=== PATIENT | female | born 1985 | race Caucasian/White ===

== ENCOUNTER 2018-03-04 18:49 | Inpatient (IN) | payer MEDICAID, OTHER ==
[2018-03-03 14:30] VITALS: BP 128/92
[~2018-03-04] VITALS: Ht 167.6 cm; Wt 139.0 kg
[2018-03-04 19:20] LABS: CLARITY,URINE CLOUDY (Clear); COLOR,URINE YELLOW (Yellow); GLUCOSE, URINE NEGATIVE (Neg); KETONES,URINE TRACE mg/dl (Neg); LEUKOCYTE ESTERASE ,URINE MODERATE (Neg); NITRITES, URINE NEGATIVE (Neg); OCCULT BLOOD,URINE MODERATE (Neg); PROTEIN,URINE 30 mg/dl (Neg); UROBILINOGEN,URINE 0.2 E.U/dL (0.2-1.0)
[2018-03-04 19:21] LABS: URINE HCG NEGATIVE (NEG)
[2018-03-04 19:27] LABS: UA COLLECTION TYPE CLN CATCH MIDSTREAM
[2018-03-04 19:32] LABS: BACTERIA,URINE 2+ /HPF (Neg); MUCUS STRANDS MODERATE /LPF (Neg); SQUAMOUS EPITHELIAL CELL,UR MANY /LPF (FEW); TRICHOMONAS,URINE MANY /HPF (NEGATIVE); WBC,URINE 20-30 /HPF (0-4)
[2018-03-04] MEDS ORDERED: CefTRIAXone/D5W-Rocephin 1gm 50 ML IV ONE (19:45)
[2018-03-04] MEDS ORDERED: normal saline 1000ml 1,000 ML IV ONE (19:45)
[2018-03-04] MEDS ORDERED: HYDROmorphone 1 mg/ml syringe IV ONE (19:45)
[2018-03-04] MEDS ORDERED: ondansetron/PF 4mg/2ml inj IV ONE ×2 (19:45→21:40)
[2018-03-04] MEDS ORDERED: HYDROmorphone inj. 0.5 MG/0.5 ML DISP.SYRIN ONE (19:51)
[2018-03-04 20:18] LABS: BASOPHILS # (AUTO) 0.1 X10'3 (0-0.2); BASOPHILS % (AUTO) 1.2 % (0-1); EOSINOPHILS # (AUTO) 0.5 X10'3 (0-0.9); EOSINOPHILS % (AUTO) 4.7 % (0-6); HEMATOCRIT 32.9 % (35.0-45.0); LYMPHOCYTES # (AUTO) 2.6 X10'3 (1.1-4.8); LYMPHOCYTES % (AUTO) 26.3 % (21-51); MEAN CORPUSCULAR HEMOGLOBIN 30.4 PG (27.0-31.0); MEAN CORPUSCULAR HGB CONC 33.4 % (33.0-36.5); MEAN CORPUSCULAR VOLUME 90.9 FL (78-98); MONOCYTES # (AUTO) 0.6 X10'3 (0-0.9); NEUTROPHILS # (AUTO) 6.1 X10'3 (1.8-7.7); NEUTROPHILS % (AUTO) 61.8 % (42-75); PLATELET COUNT 303 X10'3 (140-440); RED BLOOD COUNT 3.62 X10'6 (4.20-5.60); WHITE BLOOD COUNT 9.9 X10'3 (4.5-11.0)
[2018-03-04 20:42] LABS: URINE AMPHETAMINE SCREEN NEGATIVE (Neg); URINE BARBITUATE SCREEN NEGATIVE (Neg); URINE BENZODIAZEPINES SCREEN NEGATIVE (Neg); URINE CANNABINOID SCREEN NEGATIVE (Neg); URINE COCAINE SCREEN NEGATIVE (Neg); URINE METHADONE SCREEN NEGATIVE (Neg); URINE OPIATE SCREEN POSITIVE (Neg); URINE PHENCYCLIDINE SCREEN NEGATIVE (Neg)
[2018-03-04 21:35] LABS: ALANINE AMINOTRANSFERASE 17 U/L (12-78); ALBUMIN 2.5 G/DL (3.4-5.0); ALBUMIN/GLOBULIN RATIO 0.7 (1.1-1.5); ALKALINE PHOSPHATASE 82 IU/L (46-116); ANION GAP 8 (8-16); ASPARTATE AMINO TRANSFERASE 11 U/L (10-37); BILIRUBIN,TOTAL 0.1 MG/DL (0.1-1.0); BLOOD UREA NITROGEN 20 MG/DL (7-18); CALCIUM 7.8 MG/DL (8.5-10.1); CHLORIDE 109 MMOL/L (99-107); CREATININE 0.54 MG/DL (0.40-0.90); GLUCOSE 119 MG/DL (70-104); SODIUM 144 MMOL/L (135-145); TOTAL CARBON DIOXIDE 27.1 MMOL/L (24-32); eGFR > 90 ML/MIN
[2018-03-04] MEDS ORDERED: HYDROmorphone 2mg/ml vial IV STA (21:40)
[2018-03-04] MEDS ORDERED: CIPR-230 PO (21:40)
[2018-03-04] MEDS ORDERED: ONDA4TAB9 PO (21:41)
[2018-03-04] MEDS ORDERED: HYDR-569 PO (21:41)
[2018-03-04] MEDS ORDERED: HYDROmorphone inj. 0.5 MG/0.5 ML DISP.SYRIN IV STA (21:47)
[2018-03-04] MEDS ORDERED: metoclopramide 5 mg/ml inj IV ONE (21:55)
[2018-03-04] MEDS: potassium 10mEq/100ml NS w/LIDOcaine (10mg/bag) IV SCH ×2 (22:15→23:34)
[2018-03-05] VITALS (17 sets, daily range): BP systolic 122–152; BP diastolic 62–92
[2018-03-05 00:18] LABS: MAGNESIUM 1.7 MG/DL (1.5-2.4); PHOSPHORUS 2.7 MG/DL (2.3-4.5)
[2018-03-05] MEDS ORDERED: mag hydrox/Alum hydrox/simeth 30ml oral suspension PO PRN (01:30)
[2018-03-05] MEDS ORDERED: HYDROmorphone inj. 0.5 MG/0.5 ML DISP.SYRIN IV PRN ×4 (01:30→15:18)
[2018-03-05] MEDS ORDERED: potassium Cl 40MEQ/NS 500ml 500 ML IV PRN ×2 (01:30)
[2018-03-05] MEDS ORDERED: magnesium 2GM in 50ml NS 50 ML IV PRN (01:30)
[2018-03-05] MEDS ORDERED: magnesium Cl slow-release 64mg tablet PO PRN (01:30)
[2018-03-05] MEDS ORDERED: magnesium hydroxide 30ml (MOM) UD suspension PO PRN (01:30)
[2018-03-05] MEDS ORDERED: acetaminophen 325mg tablet PO PRN (01:30)
[2018-03-05] MEDS ORDERED: potassium Cl 20 mEq SR tablet PO PRN ×2 (01:30)
[2018-03-05] MEDS ORDERED: magnesium 4gm in 100ml NS 100 ML IV PRN (01:30)
[2018-03-05] MEDS ORDERED: HYDROmorphone 1 mg/ml syringe IV ONE (01:35)
[2018-03-05] MEDS ORDERED: HYDROmorphone inj. 0.5 MG/0.5 ML DISP.SYRIN ONE (02:22)
[2018-03-05] MEDS: levoFLOXACIN-Levaquin 500mg/D5 100 ML IV SCH ×2 (02:34→21:53)
[2018-03-05] MEDS: potassium cl 20mEq in 1/2 NS 1,000 ML IV SCH ×3 (03:50→21:26)
[2018-03-05] MEDS ORDERED: vancomycin/NS 1 GM ADD-VANTAGE 250 ML IV SCH (04:00)
[2018-03-05] MEDS ORDERED: iohexol 300mg/ml 100ml inj. ONE (07:49)
[2018-03-05] MEDS: K and/or MAG REPLACEMENT MC SCH (08:00)
[2018-03-05] MEDS: ondansetron/PF 4mg/2ml inj IV PRN ×2 (08:09→18:42)
[2018-03-05] MEDS: HYDROmorphone inj. 0.5 MG/0.5 ML DISP.SYRIN IV PRN ×5 (08:09→23:53)
[2018-03-05] MEDS: lactobacillus rhamnosus 10,000 MMU CELLS/CAPSULE PO SCH ×2 (09:30→19:53)
[2018-03-05] MEDS: heparin, porcine 5000 units/ml vial SQ SCH ×2 (09:30→20:00)
[2018-03-05] MEDS: vancomycin/NS 1 GM ADD-VANTAGE 250 ML IV SCH ×2 (12:00→19:52)
[2018-03-05] MEDS ORDERED: fentaNYL /PF 50mcg/ml 5ml ampule ONE (12:20)
[2018-03-05] MEDS ORDERED: BUPIVAcaine/PF 2.5 mg/ml (0.25%) 30ml vial ONE (12:20)
[2018-03-05] MEDS ORDERED: rocuronium 10mg/ml inj IV ONE (12:22)
[2018-03-05] MEDS ORDERED: LIDOcaine 2% (20mg/ml) 5ml vial ONE (12:22)
[2018-03-05] MEDS ORDERED: propofol inj 20 ML IV ONE (12:22)
[2018-03-05] MEDS ORDERED: midazolam 2 mg/2 ml injection ONE (12:33)
[2018-03-05] MEDS ORDERED: sevoflurane 250ml liquid IH ONE (12:43)
[2018-03-05] MEDS ORDERED: meperidine/PF 50mg/ml syringe ONE (13:27)
[2018-03-05] MEDS ORDERED: ringers solution, lacted 1,000 ML IV SCH (13:38)
[2018-03-05] MEDS ORDERED: meperidine/PF 25mg/ml syringe ONE (13:38)
[2018-03-05] MEDS ORDERED: ondansetron/PF 4mg/2ml inj IV PRN (13:40)
[2018-03-05] MEDS ORDERED: fentaNYL/PF 50MCG/1 ML 2ML syringe IV PRN (13:40)
[2018-03-05] MEDS ORDERED: glycopyrrolate 0.2mg/ml inj ONE (13:43)
[2018-03-05] MEDS ORDERED: neostigmine methylsulfate 1 MG/ML 10ml vial ONE (13:43)
[2018-03-05] MEDS ORDERED: ondansetron/PF 4mg/2ml inj ONE (13:43)
[2018-03-05] MEDS ORDERED: HYDROmorphone 1 mg/ml syringe IV PRN (15:15)
[2018-03-06] VITALS: BP 152/92
[2018-03-06] MEDS ORDERED: VANCOMYCIN LEVEL IV ONE (03:30)
[2018-03-06] MEDS: ondansetron/PF 4mg/2ml inj IV PRN ×2 (03:57→15:39)
[2018-03-06] MEDS: vancomycin/NS 1 GM ADD-VANTAGE 250 ML IV SCH (03:57)
[2018-03-06] MEDS: HYDROmorphone inj. 0.5 MG/0.5 ML DISP.SYRIN IV PRN ×6 (03:57→21:58)
[2018-03-06 03:58] LABS: BASOPHILS % (AUTO) 0.5 % (0-1); EOSINOPHILS # (AUTO) 0.3 X10'3 (0-0.9); EOSINOPHILS % (AUTO) 3.7 % (0-6); HEMATOCRIT 30.4 % (35.0-45.0); HEMOGLOBIN 10.4 g/dl (12.0-16.0); LYMPHOCYTES % (AUTO) 26.7 % (21-51); MEAN CORPUSCULAR HEMOGLOBIN 30.9 PG (27.0-31.0); MEAN CORPUSCULAR HGB CONC 34.1 % (33.0-36.5); MEAN CORPUSCULAR VOLUME 90.5 FL (78-98); MEAN PLATELET VOLUME 8.6 FL (7.4-10.4); MONOCYTES # (AUTO) 0.4 X10'3 (0-0.9); MONOCYTES % (AUTO) 5.5 % (2-12); NEUTROPHILS # (AUTO) 4.7 X10'3 (1.8-7.7); NEUTROPHILS % (AUTO) 63.6 % (42-75); PLATELET COUNT 308 X10'3 (140-440); RED BLOOD COUNT 3.36 X10'6 (4.20-5.60); RED CELL DISTRIBUTION WIDTH 13.6 % (11.5-14.5); WHITE BLOOD COUNT 7.5 X10'3 (4.5-11.0)
[2018-03-06 04:12] LABS: ALBUMIN 2.5 G/DL (3.4-5.0); ANION GAP 8 (8-16); BLOOD UREA NITROGEN 7 MG/DL (7-18); BUN/CREATININE RATIO 12.1 (6.6-38.0); CALCIUM 8.3 MG/DL (8.5-10.1); CHLORIDE 105 MMOL/L (99-107); CREATININE 0.58 MG/DL (0.40-0.90); GLUCOSE 135 MG/DL (70-104); MAGNESIUM 1.6 MG/DL (1.5-2.4); POTASSIUM 3.4 MMOL/L (3.5-5.1); SODIUM 140 MMOL/L (135-145); TOTAL CARBON DIOXIDE 26.9 MMOL/L (24-32); VANCOMYCIN,TROUGH 7.1 UG/ML (6.0-14.0); eGFR > 90 ML/MIN
[2018-03-06 07:23] VITALS: BP 159/88
[2018-03-06] MEDS: K and/or MAG REPLACEMENT MC SCH (08:00)
[2018-03-06] MEDS: lactobacillus rhamnosus 10,000 MMU CELLS/CAPSULE PO SCH ×2 (08:00→20:13)
[2018-03-06] MEDS: potassium cl 20mEq in 1/2 NS 1,000 ML IV SCH ×2 (09:03→17:18)
[2018-03-06] MEDS: heparin, porcine 5000 units/ml vial SQ SCH ×2 (09:06→20:13)
[2018-03-06 11:21] VITALS: BP 151/80
[2018-03-06 18:50] VITALS: BP 136/71
[2018-03-06] MEDS ORDERED: HYDROcodone/acetaminophen 10/325mg tab PO PRN (20:05)
[2018-03-06] MEDS: ketorolac trometh. 30mg/ml inj. IV PRN (20:26)
[2018-03-06] MEDS: levoFLOXACIN-Levaquin 500mg/D5 100 ML IV SCH (21:56)
[2018-03-07] VITALS: BP 121/66
[2018-03-07] MEDS: HYDROmorphone inj. 0.5 MG/0.5 ML DISP.SYRIN IV PRN ×5 (01:06→13:49)
[2018-03-07] MEDS: potassium cl 20mEq in 1/2 NS 1,000 ML IV SCH ×2 (03:03→13:52)
[2018-03-07] MEDS: ondansetron/PF 4mg/2ml inj IV PRN ×2 (03:51→12:47)
[2018-03-07] MEDS: K and/or MAG REPLACEMENT MC SCH ×3 (07:15→12:37)
[2018-03-07] MEDS: lactobacillus rhamnosus 10,000 MMU CELLS/CAPSULE PO SCH ×2 (07:15→20:27)
[2018-03-07] MEDS: pantoprazole 40mg Tablet.DR PO SCH (07:23)
[2018-03-07] MEDS: heparin, porcine 5000 units/ml vial SQ SCH ×2 (07:24→20:25)
[2018-03-07 07:35] VITALS: BP 122/65
[2018-03-07 08:54] LABS: BASOPHILS % (AUTO) 0.8 % (0-1); EOSINOPHILS # (AUTO) 0.4 X10'3 (0-0.9); EOSINOPHILS % (AUTO) 6.7 % (0-6); HEMATOCRIT 30.8 % (35.0-45.0); HEMOGLOBIN 10.6 g/dl (12.0-16.0); LYMPHOCYTES # (AUTO) 1.8 X10'3 (1.1-4.8); LYMPHOCYTES % (AUTO) 31.3 % (21-51); MEAN CORPUSCULAR HGB CONC 34.4 % (33.0-36.5); MEAN CORPUSCULAR VOLUME 90.3 FL (78-98); MEAN PLATELET VOLUME 9.4 FL (7.4-10.4); MONOCYTES # (AUTO) 0.4 X10'3 (0-0.9); MONOCYTES % (AUTO) 7.4 % (2-12); NEUTROPHILS # (AUTO) 3.2 X10'3 (1.8-7.7); NEUTROPHILS % (AUTO) 53.8 % (42-75); PLATELET COUNT 296 X10'3 (140-440); RED BLOOD COUNT 3.41 X10'6 (4.20-5.60); RED CELL DISTRIBUTION WIDTH 12.4 % (11.5-14.5); WHITE BLOOD COUNT 5.8 X10'3 (4.5-11.0)
[2018-03-07 08:59] LABS: ALBUMIN 2.5 G/DL (3.4-5.0); ANION GAP 8 (8-16); BLOOD UREA NITROGEN 9 MG/DL (7-18); BUN/CREATININE RATIO 16.4 (6.6-38.0); CALCIUM 8.3 MG/DL (8.5-10.1); CHLORIDE 104 MMOL/L (99-107); CREATININE 0.55 MG/DL (0.40-0.90); GLUCOSE 119 MG/DL (70-104); MAGNESIUM 1.7 MG/DL (1.5-2.4); POTASSIUM 3.7 MMOL/L (3.5-5.1); SODIUM 141 MMOL/L (135-145); TOTAL CARBON DIOXIDE 29.3 MMOL/L (24-32); eGFR > 90 ML/MIN
[2018-03-07 11:30] VITALS: BP 118/58
[2018-03-07] MEDS ORDERED: VANCOMYCIN LEVEL IV ONE (11:30)
[2018-03-07] MEDS: HYDROmorphone 2mg tablet PO PRN ×2 (17:52→21:59)
[2018-03-07 18:30] VITALS: BP 112/65
[2018-03-07] MEDS ORDERED: ondansetron 4mg rapidly disintigrating tab PO PRN (19:20)
[2018-03-07] MEDS ORDERED: QUEtiapine 25mg tablet PO PRN (22:00)
[2018-03-08] MEDS: HYDROmorphone 2mg tablet PO PRN ×5 (03:31→21:10)
[2018-03-08 06:05] LABS: BASOPHILS % (AUTO) 0.3 % (0-1); EOSINOPHILS # (AUTO) 0.3 X10'3 (0-0.9); EOSINOPHILS % (AUTO) 2.4 % (0-6); HEMATOCRIT 36.2 % (35.0-45.0); HEMOGLOBIN 12.3 g/dl (12.0-16.0); LYMPHOCYTES # (AUTO) 0.9 X10'3 (1.1-4.8); LYMPHOCYTES % (AUTO) 6.6 % (21-51); MEAN CORPUSCULAR HEMOGLOBIN 30.6 PG (27.0-31.0); MEAN CORPUSCULAR HGB CONC 33.9 % (33.0-36.5); MEAN CORPUSCULAR VOLUME 90.3 FL (78-98); MEAN PLATELET VOLUME 9.7 FL (7.4-10.4); MONOCYTES # (AUTO) 0.4 X10'3 (0-0.9); MONOCYTES % (AUTO) 2.8 % (2-12); NEUTROPHILS # (AUTO) 11.5 X10'3 (1.8-7.7); NEUTROPHILS % (AUTO) 87.9 % (42-75); PLATELET COUNT 213 X10'3 (140-440); RED BLOOD COUNT 4.01 X10'6 (4.20-5.60); RED CELL DISTRIBUTION WIDTH 13.8 % (11.5-14.5)
[2018-03-08 06:27] LABS: ALBUMIN 2.9 G/DL (3.4-5.0); ANION GAP 9 (8-16); BLOOD UREA NITROGEN 10 MG/DL (7-18); BUN/CREATININE RATIO 17.9 (6.6-38.0); CALCIUM 8.7 MG/DL (8.5-10.1); CHLORIDE 103 MMOL/L (99-107); CREATININE 0.56 MG/DL (0.40-0.90); GLUCOSE 98 MG/DL (70-104); POTASSIUM 3.9 MMOL/L (3.5-5.1); SODIUM 140 MMOL/L (135-145); TOTAL CARBON DIOXIDE 27.9 MMOL/L (24-32); eGFR > 90 ML/MIN
[2018-03-08 08:00] VITALS: BP 132/75
[2018-03-08] MEDS: K and/or MAG REPLACEMENT MC SCH (08:28)
[2018-03-08] MEDS: lactobacillus rhamnosus 10,000 MMU CELLS/CAPSULE PO SCH ×2 (08:41→20:06)
[2018-03-08] MEDS: pantoprazole 40mg Tablet.DR PO SCH (08:41)
[2018-03-08] MEDS: heparin, porcine 5000 units/ml vial SQ SCH ×2 (08:45→20:09)
[2018-03-08 11:00] VITALS: BP 119/81
[2018-03-08] MEDS: cephalexin 500mg capsule PO SCH ×2 (13:57→20:06)
[2018-03-08] MEDS: vancomycin/NS 1 GM ADD-VANTAGE 250 ML IV SCH ×2 (13:58→21:10)
[2018-03-08] MEDS: ketorolac trometh. 30mg/ml inj. IV PRN (18:55)
[2018-03-08 19:10] VITALS: BP 136/81
[2018-03-08] MEDS ORDERED: zolpidem 5mg tablet PO PRN (21:05)
[2018-03-08] MEDS: proCHLORperazine 10 MG/2 ml inj IV PRN (22:55)
[2018-03-09] VITALS: BP 138/60
[2018-03-09] MEDS: cephalexin 500mg capsule PO SCH ×3 (01:47→13:28)
[2018-03-09] MEDS: HYDROmorphone 2mg tablet PO PRN ×3 (01:47→11:05)
[2018-03-09 04:10] LABS: ALBUMIN 2.5 G/DL (3.4-5.0); ANION GAP 7 (8-16); BLOOD UREA NITROGEN 18 MG/DL (7-18); BUN/CREATININE RATIO 30.5 (6.6-38.0); CHLORIDE 106 MMOL/L (99-107); CREATININE 0.59 MG/DL (0.40-0.90); GLUCOSE 125 MG/DL (70-104); MAGNESIUM 1.9 MG/DL (1.5-2.4); POTASSIUM 3.7 MMOL/L (3.5-5.1); SODIUM 142 MMOL/L (135-145); TOTAL CARBON DIOXIDE 28.9 MMOL/L (24-32); eGFR > 90 ML/MIN
[2018-03-09 04:23] LABS: BASOPHILS % (AUTO) 0.4 % (0-1); EOSINOPHILS # (AUTO) 0.4 X10'3 (0-0.9); EOSINOPHILS % (AUTO) 5.5 % (0-6); HEMATOCRIT 30.4 % (35.0-45.0); HEMOGLOBIN 10.4 g/dl (12.0-16.0); LYMPHOCYTES # (AUTO) 1.4 X10'3 (1.1-4.8); LYMPHOCYTES % (AUTO) 20.4 % (21-51); MEAN CORPUSCULAR HEMOGLOBIN 31.1 PG (27.0-31.0); MEAN CORPUSCULAR HGB CONC 34.3 % (33.0-36.5); MEAN CORPUSCULAR VOLUME 90.6 FL (78-98); MONOCYTES # (AUTO) 0.6 X10'3 (0-0.9); MONOCYTES % (AUTO) 8.9 % (2-12); NEUTROPHILS # (AUTO) 4.6 X10'3 (1.8-7.7); NEUTROPHILS % (AUTO) 64.8 % (42-75); PLATELET COUNT 232 X10'3 (140-440); RED BLOOD COUNT 3.36 X10'6 (4.20-5.60); RED CELL DISTRIBUTION WIDTH 12.9 % (11.5-14.5)
[2018-03-09] MEDS: vancomycin/NS 1 GM ADD-VANTAGE 250 ML IV SCH ×2 (04:53→12:41)
[2018-03-09] MEDS: lactobacillus rhamnosus 10,000 MMU CELLS/CAPSULE PO SCH (08:30)
[2018-03-09] MEDS: pantoprazole 40mg Tablet.DR PO SCH (08:31)
[2018-03-09] MEDS: ketorolac trometh. 30mg/ml inj. IV PRN (08:31)
[2018-03-09] MEDS: heparin, porcine 5000 units/ml vial SQ SCH (08:31)
[2018-03-09] MEDS: proCHLORperazine 10 MG/2 ml inj IV PRN (08:32)
[2018-03-09 08:54] VITALS: BP 114/62
[2018-03-09] MEDS ORDERED: HYDROmorphone 2mg tablet PO PRN (11:45)
[2018-03-09 11:46] VITALS: BP 134/70
[2018-03-09] MEDS ORDERED: VANCOMYCIN LEVEL IV ONE (12:30)
[2018-03-09] MEDS ORDERED: CEPH500C5 PO (12:40)
[2018-03-09] MEDS ORDERED: HYDR2TAB7 PO (12:40)
== END 2018-03-09 16:05 | disposition home or self-care (01) | DRG 335 ==
LOC: ER 18:50 → ED HOLD 03-05 01:26 → SUR 3N 03-05 08:26
PROVIDERS: ADMIT Internal Medicine; ATTEND Family Medicine
PROC: 0DNU4ZZ Release Omentum, Percutaneous Endoscopic Approach (ICD-10-PCS; principal; 2018-03-05 12:43)
DX: K56.51 Intestinal adhesions [bands], with partial obstruction (principal); E43 Unspecified severe protein-calorie malnutrition; Z68.42 Body mass index [BMI] 45.0-49.9, adult; L03.116 Cellulitis of left lower limb; I80.8 Phlebitis and thrombophlebitis of other sites; N39.0 Urinary tract infection, site not specified; R20.3 Hyperesthesia; D64.9 Anemia, unspecified; E86.0 Dehydration; E87.6 Hypokalemia; J45.909 Unspecified asthma, uncomplicated; R00.0 Tachycardia, unspecified; R03.0 Elevated blood-pressure reading, without diagnosis of hypertension; R35.0 Frequency of micturition; Z72.0 Tobacco use; Z90.49 Acquired absence of other specified parts of digestive tract; Z88.1 Allergy status to other antibiotic agents; Z88.5 Allergy status to narcotic agent; Z88.0 Allergy status to penicillin; Z88.2 Allergy status to sulfonamides
CPT/HCPCS: 36415; 74176; 80048; 80053; 80202; 80305; 81001; 81025; 83605; 83735; 84100; 84132; 84145; 85025; 85610; 87040; 87070; A6258; A6446; A7000; J0696; J0780; J1170; J1644; J1885; J1956; J2001; J2175; J2250; J2405; J2704; J2710; J2765; J3010; J3370; J3480; J3490; J7030; J7120; Q9967

== ENCOUNTER 2018-03-12 17:36 | Emergency (ER) | payer OTHER ==
[~2018-03-12 17:36] MED LIST: CEPH500C5 PO; HYDR2TAB7 PO; ONDA4TAB9 PO
== END 2018-03-12 19:37 | disposition left against medical advice (07) ==
LOC: ER 17:37
DX: Z53.21 Procedure and treatment not carried out due to patient leaving prior to being seen by health care provider (principal)

== ENCOUNTER 2018-03-12 21:24 | Inpatient (IN) | payer OTHER ==
[~2018-03-12] VITALS: Ht 167.6 cm; Wt 64.5 kg
[2018-03-12] MEDS ORDERED: normal saline 1000ML IV soln IVB ONE (21:35)
[2018-03-12] MEDS ORDERED: HYDROmorphone inj. 0.5 MG/0.5 ML DISP.SYRIN IV ONE (21:35)
[2018-03-12] MEDS ORDERED: ondansetron/PF 4mg/2ml inj IV ONE (21:35)
[2018-03-13] MEDS ORDERED: HYDROmorphone inj. 0.5 MG/0.5 ML DISP.SYRIN IV ONE (00:05)
[2018-03-13] MEDS ORDERED: ondansetron/PF 4mg/2ml inj IV ONE (00:05)
[2018-03-13] MEDS ORDERED: acetaminophen 650mg rectal suppository RC PRN (00:15)
[2018-03-13] MEDS ORDERED: potassium Cl 20 mEq SR tablet PO PRN ×2 (00:15)
[2018-03-13] MEDS ORDERED: potassium Cl 40MEQ/NS 500ml 500 ML IV PRN ×2 (00:15)
[2018-03-13] MEDS ORDERED: ipratropium/albuterol 3ml nebule NEB PRN (00:20)
[2018-03-13] MEDS: normal saline 1000ml 1,000 ML IV SCH ×3 (01:34→19:09)
[2018-03-13] MEDS: HYDROmorphone inj. 0.5 MG/0.5 ML DISP.SYRIN IV PRN ×9 (03:57→23:34)
[2018-03-13 06:43] LABS: ALANINE AMINOTRANSFERASE 95 U/L (12-78); ALBUMIN 3.3 G/DL (3.4-5.0); ALBUMIN/GLOBULIN RATIO 0.8 (1.1-1.5); ALKALINE PHOSPHATASE 166 IU/L (46-116); ANION GAP 15 (8-16); ASPARTATE AMINO TRANSFERASE 40 U/L (10-37); BILIRUBIN,TOTAL 0.2 MG/DL (0.1-1.0); BLOOD UREA NITROGEN 18 MG/DL (7-18); CALCIUM 8.7 MG/DL (8.5-10.1); CHLORIDE 103 MMOL/L (99-107); CREATININE 0.15 MG/DL (0.40-0.90); GLUCOSE 102 MG/DL (70-104); SODIUM 142 MMOL/L (135-145); TOTAL CARBON DIOXIDE 23.7 MMOL/L (24-32); TOTAL PROTEIN 7.7 G/DL (6.4-8.2); eGFR > 90 ML/MIN
[2018-03-13] MEDS: K and/or MAG REPLACEMENT MC SCH (08:00)
[2018-03-13] MEDS: ondansetron/PF 4mg/2ml inj IV PRN ×2 (08:16→21:12)
[2018-03-13 09:01] LABS: URINE HCG NEGATIVE (NEG)
[2018-03-13 09:03] LABS: CLARITY,URINE Cloudy (Clear); COLOR,URINE Yellow (Yellow); GLUCOSE, URINE Negative (Neg); KETONES,URINE Negative (Neg); LEUKOCYTE ESTERASE ,URINE Moderate (Neg); NITRITES, URINE Negative (Neg); OCCULT BLOOD,URINE Negative (Neg); PH,URINE 6.5 (4.8-8.0); PROTEIN,URINE Negative (Neg); UROBILINOGEN,URINE 0.2 E.U/dL (0.2-1.0)
[2018-03-13 09:09] LABS: UA COLLECTION TYPE CLN CATCH MIDSTREAM
[2018-03-13 09:11] LABS: RBC,URINE NONE SEEN /HPF (0-2); WBC,URINE 20-30 /HPF (0-4)
[2018-03-13 09:12] LABS: AMORPHOUS URATES 1+; BACTERIA,URINE FEW /HPF (Neg); CAL OXALATE CRYSTALS 1+ /HPF (NEGATIVE); COARSE GRANULAR CAST 0-3 /LPF (NEGATIVE); MUCUS STRANDS MANY /LPF (Neg); SQUAMOUS EPITHELIAL CELL,UR FEW /LPF (FEW); TRICHOMONAS,URINE FEW /HPF (NEGATIVE); WBC CLUMPS,URINE FEW /HPF (NEGATIVE)
[2018-03-13 09:21] LABS: MAGNESIUM 1.9 MG/DL (1.5-2.4)
[2018-03-13] MEDS ORDERED: CefTRIAXone/D5W-Rocephin 1gm 50 ML IV ONE (10:20)
[2018-03-13] MEDS ORDERED: LIDOcaine 2% (20 mg/ml) 5ml cardiac syringe ONE (11:00)
[2018-03-13 12:39] LABS: BASOPHILS % (AUTO) 0.4 % (0-1); EOSINOPHILS # (AUTO) 0.4 X10'3 (0-0.9); EOSINOPHILS % (AUTO) 4.5 % (0-6); HEMATOCRIT 31.6 % (35.0-45.0); HEMOGLOBIN 10.7 g/dl (12.0-16.0); LYMPHOCYTES # (AUTO) 2.2 X10'3 (1.1-4.8); LYMPHOCYTES % (AUTO) 26.8 % (21-51); MEAN CORPUSCULAR HEMOGLOBIN 30.3 PG (27.0-31.0); MEAN CORPUSCULAR HGB CONC 33.7 % (33.0-36.5); MEAN CORPUSCULAR VOLUME 89.7 FL (78-98); MONOCYTES # (AUTO) 0.5 X10'3 (0-0.9); MONOCYTES % (AUTO) 6.5 % (2-12); NEUTROPHILS % (AUTO) 61.8 % (42-75); PLATELET COUNT 315 X10'3 (140-440); RED BLOOD COUNT 3.53 X10'6 (4.20-5.60); RED CELL DISTRIBUTION WIDTH 13.6 % (11.5-14.5); WHITE BLOOD COUNT 8.1 X10'3 (4.5-11.0)
[2018-03-13 17:20] VITALS: BP 151/89
[2018-03-13 19:00] VITALS: BP 131/87
[2018-03-13 19:45] VITALS: BP 150/87
[2018-03-13] MEDS: diatr meglu/diatrizoate 30ml oral sol.-(3 dose) bottle PO SCH (21:12)
[2018-03-14] MEDS: HYDROmorphone inj. 0.5 MG/0.5 ML DISP.SYRIN IV PRN ×8 (02:11→20:02)
[2018-03-14] MEDS: normal saline 1000ml 1,000 ML IV SCH ×2 (04:42→16:07)
[2018-03-14] MEDS: diatr meglu/diatrizoate 30ml oral sol.-(3 dose) bottle PO SCH ×2 (07:17→09:52)
[2018-03-14] MEDS: CefTRIAXone/D5W-Rocephin 1gm 50 ML IV SCH (07:18)
[2018-03-14 07:32] VITALS: BP 118/54
[2018-03-14] MEDS: K and/or MAG REPLACEMENT MC SCH (08:00)
[2018-03-14 12:35] VITALS: BP 131/76
[2018-03-14] MEDS ORDERED: bisacodyl 10mg suppository rectal RC STA (15:59)
[2018-03-14 19:30] VITALS: BP 129/64
[2018-03-14] MEDS ORDERED: zolpidem 5mg tablet PO PRN (20:15)
[2018-03-14 23:50] VITALS: BP 130/80
[2018-03-15] MEDS: HYDROmorphone inj. 0.5 MG/0.5 ML DISP.SYRIN IV PRN ×4 (00:21→12:36)
[2018-03-15] MEDS: normal saline 1000ml 1,000 ML IV SCH ×2 (02:01→12:15)
[2018-03-15] MEDS: K and/or MAG REPLACEMENT MC SCH (08:00)
[2018-03-15] MEDS: CefTRIAXone/D5W-Rocephin 1gm 50 ML IV SCH (08:35)
[2018-03-15 08:44] VITALS: BP 127/83
[2018-03-15 11:14] VITALS: BP 100/75
[2018-03-15] MEDS ORDERED: butalbital/acetaminophen/caffeine (Fioricet) tablet PO ONE (13:00)
[2018-03-15] MEDS ORDERED: LEVO500T2 PO (13:16)
[2018-03-15] MEDS ORDERED: ALBU8HFA PO (13:20)
[2018-03-15] MEDS ORDERED: ATRIN INH (13:20)
[2018-03-15 13:30] LABS: HEP B CORE AB, TOT Negative (Negative); HEPATITIS C ANTIBODY <0.1 s/co ratio (0.0-0.9)
== END 2018-03-15 14:13 | disposition home or self-care (01) | DRG 394 ==
LOC: ER 21:24 → ED HOLD 03-13 00:15 → EDBEDREQTM 03-13 16:06 → SUR 3N 03-13 17:52
PROVIDERS: ADMIT Family Medicine; ATTEND Emergency Medicine
PROC: 0D9670Z Drainage of Stomach with Drainage Device, Via Natural or Artificial Opening (ICD-10-PCS; principal; 2018-03-13)
DX: K91.89 Other postprocedural complications and disorders of digestive system (principal); N39.0 Urinary tract infection, site not specified; F11.20 Opioid dependence, uncomplicated; L03.116 Cellulitis of left lower limb; K56.7 Ileus, unspecified; I80.3 Phlebitis and thrombophlebitis of lower extremities, unspecified; E86.0 Dehydration; E87.6 Hypokalemia; K46.9 Unspecified abdominal hernia without obstruction or gangrene; R74.0 Nonspecific elevation of levels of transaminase and lactic acid dehydrogenase [LDH]; J45.909 Unspecified asthma, uncomplicated; Z82.49 Family history of ischemic heart disease and other diseases of the circulatory system; Z88.0 Allergy status to penicillin; Z88.2 Allergy status to sulfonamides; Z88.8 Allergy status to other drugs, medicaments and biological substances; Z90.49 Acquired absence of other specified parts of digestive tract
CPT/HCPCS: 36415; 74176; 80053; 81001; 81025; 83735; 85025; 86704; 86803; 87070; 87088; 94760; 96374; 96375; 96376; 99285; J0696; J1170; J2001; J2405; J7030; Q9963